=== PATIENT | female | born 1945 | race Caucasian/White ===

== ENCOUNTER → 2016-12-03 09:27 | Outpatient (CLI) | payer MEDICARE, BC ==
[2016-12-03 10:15] LABS: BASOPHILS 0.7 % (0-2); EOSINOPHILS 1.6 % (0-7); HEMATOCRIT 42.9 % (36.0-48.0); HEMOGLOBIN 14.2 g/dL (12-16); IMMATURE GRANULOCYTES 0.2 % (0-5); LYMPHOCYTES 38.6 % (15-50); MCH 29.6 pg (26.0-34.0); MCHC 33.1 g/dL (31.0-37.0); MCV 89.4 fL (80.0-100.0); MEAN PLATELET VOLUME 8.9 fL (7.4-10.4); MONOCYTES 11.4 % (2-11); NEUTROPHILS 47.5 % (40-80); PLATELET COUNT 175 10x3/uL (130-400); RDW 13.8 % (11.5-14.5); WBC 4.3 10x3/uL (4.8-10.8)
[2016-12-03 10:53] LABS: ANION GAP 11.3 mmol/L (8-16); BILIRUBIN - TOTAL 1.1 mg/dL (0.2-1.3); CALCIUM 9.2 mg/dL (8.5-10.1); CARBON DIOXIDE 30.8 mmol/L (21.0-32.0); CHOL - HDL RATIO 2.7 ratio (2.3-4.1); CREATININE - SERUM 0.8 mg/dL (0.6-1.3); LDL-HDL RATIO 1.6 ratio (1.5-3.5); POTASSIUM - SERUM 4.1 mmol/L (3.5-5.1); PROTEIN - SERUM 7.9 g/dL (6.4-8.2); THYROID STIMULATING HORMONE 2.02 uIU/mL (0.36-3.74)
== END | disposition home or self-care (01) ==
LOC: D.LAB 09:27
PROVIDERS: Family Medicine
DX: Z00.01 Encounter for general adult medical examination with abnormal findings (principal); I10 Essential (primary) hypertension; E78.00 Pure hypercholesterolemia, unspecified